=== PATIENT | female | born 1940 | race Caucasian/White ===

== ENCOUNTER 2018-09-17 15:40 | Emergency (ER) | payer MEDICARE ==
[2018-09-17 17:13] LABS: Urine Appearance Clear; Urine Bacteria 1+ (Absent); Urine Bilirubin Negative (Negative); Urine Blood 3+ (Negative); Urine Color Red; Urine Glucose Negative (Negative); Urine Ketones Negative (Negative); Urine Nitrite Negative (Negative); Urine Protein 2+(100 mg/dL) (Negative); Urine Red Blood Cell Trace(0-2/hpf) (Absent); Urine Specific Gravity 1.003 (1.010-1.030); Urine Urobilinogen Negative (Negative); Urine White Blood Cell Trace(0-5/hpf) (Absent)
[2018-09-17] MEDS ORDERED: cefTRIAXone(*) 1 GM in NS 0.9% 50 ML* 50 ML IVPB ONE (17:44)
[2018-09-17 18:19] LABS: ABS Basophils 0 10^3/ul (0-0.2); ABS Eosinophils 0.1 10^3/ul (0-0.6); ABS Lymphocytes 1.2 10^3/ul (1.0-4.8); ABS Monocytes 0.6 10^3/ul (0-0.8); ABS Neutrophils 4.7 10^3/ul (1.5-7.7); ABS Nucleated RBC 0 10^3/ul; Hematocrit 26 % (35-47); Hemoglobin 8.7 g/dl (12.0-16.0); Lymphocyte % 18.5 %; Mean Corpuscular HGB Conc 34 g/dl (31-36); Mean Corpuscular Hemoglobin 32 pg (27-31); Mean Corpuscular Volume 95 fL (80-97); Mean Platelet Volume 8.3 fL (7.4-10.4); Nucleated Red Blood Cells % 0.1; Platelet Count 217 10^3/ul (150-450); Red Blood Count 2.74 10^6/ul (4.00-5.40); Red Cell Distribution Width 17 % (10.5-15); White Blood Count 6.6 10^3/ul (3.5-10.8)
[2018-09-17 18:35] LABS: ALT 22 U/L (7-52); Albumin 4.3 g/dL (3.2-5.2); Alkaline Phosphatase 36 U/L (34-104); BUN/Creatinine Ratio 10.4 (8-20); Blood Urea Nitrogen 8 mg/dL (6-24); C Reactive Protein 2.04 mg/L (<8.01); CO2 Carbon Dioxide 24 mmol/L (22-32); Calcium 9.5 mg/dL (8.6-10.3); Chloride 105 mmol/L (101-111); EGFR Non-African American 72.9 (>60); Globulin 2.1 g/dL (2-4); Glucose 103 mg/dL (70-100); Sodium 134 mmol/L (135-145); Total Protein 6.4 g/dL (6.4-8.9)
[2018-09-17 18:45] LABS: Anion Gap 5 mmol/L (2-11)
--- NOTE | 2018-09-17 19:12 | ED ---
GI/ HPI - HPI Summary HPI Summary: 78-year-old presents with dysuria and hematuria today. States she felt feverish and chills. States he has history hematuria by Dr. Anderson cannot figure out why she gets it. She says she feels like she is UTI. She admits to lower abdominal pain after she can. She also had flank pain but this has since resolved. She has a history of anemia and gets blood transfusions. She is not on blood thinners. She doesn't take a daily aspirin. She denies any history kidney stones. She has a chest pain or shortness of breath. She states she has no pain at home until she urinates. Has history of cholecystectomy, appendectomy and hernia repair. - History of Current Complaint Chief Complaint: EDUrogenitalProblems Time Seen by Provider: 09/17/18 17:36 Stated Complaint: BLOOD IN URINE/CRAMPS/FEVER Pain Intensity: 4 - Additional Pertinent History Primary Care Physician: ZORAIDA - Allergy/Home Medications Allergies/Adverse Reactions: Allergies Allergy/AdvReac Type Severity Reaction Status Date / Time No Known Allergies Allergy Verified 09/17/18 16:50 PMH/Surg Hx/FS Hx/Imm Hx Endocrine/Hematology History: Reports: Hx Anemia Denies: Hx Anticoagulant Therapy, Hx Diabetes Cardiovascular History: Reports: Hx Valvular Heart Disease Denies: Hx Congestive Heart Failure, Hx Hypertension, Hx Pacemaker/ICD Respiratory History: Denies: Hx Asthma, Hx Chronic Obstructive Pulmonary Disease (COPD) GI History: Reports: Hx Gastroesophageal Reflux Disease, Hx Irritable Bowel History: Reports: Other Problems/Disorders - Hx of Prolapsed bladder w/ surgical repair February 2015 Musculoskeletal History: Reports: Hx Arthritis, Hx Back Problems Sensory History: Reports: Hx Contacts or Glasses, Hx Hearing Aid Opthamlomology History: Reports: Hx Contacts or Glasses Psychiatric History: Reports: Hx Anxiety - uses prn meds Denies: Hx Panic Disorder, Hx of Violent Episodes Against Others - Cancer History Cancer Type, 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 [place] Hx Chemotherapy: No Hx Radiation Therapy: No - Surgical History Surgery Procedure, Year, and Place: appendectomy, hysterectomy ,c sections, hemerroidectomy, AORTIC AND MITRAL VALVE REPAIR, CABG Hx Anesthesia Reactions: No Infectious Disease History: No Infectious Disease History: Denies: Traveled Outside the [place] in Last 30 Days - Family History Known Family History: Positive: Non-Contributory - Social History Alcohol Use: None Substance Use Type: Reports: None Smoking Status (MU): Former Smoker Type: Cigarettes Amount Used/How Often: smoked 1ppd Length of Time of Smoking/Using Tobacco: 25 years Have You Smoked in the Last Year: No Review of Systems Positive: Fever, Chills Negative: Chest Pain Negative: Shortness Of Breath Negative: Abdominal Pain, Nausea Positive: dysuria, flank pain - resolved, hematuria All Other Systems Reviewed And Are Negative: Yes Physical Exam Triage Information Reviewed: Yes Vital Signs On Initial Exam: Initial Vitals Temp Pulse Resp BP Pulse Ox 98.6 F 72 16 160/87 100 09/17/18 15:54 09/17/18 15:54 09/17/18 15:54 09/17/18 15:54 09/17/18 15:54 Vital Signs Reviewed: Yes Appearance: Positive: Well-Appearing Skin: Positive: Warm, Dry Head/Face: Positive: Normal Head/Face Inspection Eyes: Positive: Normal, Conjunctiva Clear ENT: Positive: Pharynx normal Respiratory/Lung Sounds: Positive: Clear to Auscultation, Breath Sounds Present Cardiovascular: Positive: Normal, RRR Abdomen Description: Positive: Nontender, Soft. Negative: CVA Tenderness (R), CVA Tenderness (L) Bowel Sounds: Positive: Present Musculoskeletal: Positive: Normal Neurological: Positive: Normal Psychiatric: Positive: Normal Diagnostics - Vital Signs Vital Signs Temp Pulse Resp BP Pulse Ox 09/17/18 15:54 98.6 F 72 16 160/87 100 - Laboratory Lab Results: Lab Results 09/17/18 09/17/18 09/17/18 Range/Units 16:06 18:08 18:08 WBC 6.6 (3.5-10.8) 10^3/ul RBC 2.74 L (4.00-5.40) 10^6/ul Hgb 8.7 L (12.0-16.0) g/dl Hct 26 L (35-47) % MCV 95 (80-97) fL MCH 32 H (27-31) pg MCHC 34 (31-36) g/dl RDW 17 H (10.5-15) % Plt Count 217 (150-450) 10^3/ul MPV 8.3 (7.4-10.4) fL Neut % (Auto) 70.7 % Lymph % (Auto) 18.5 % Mccone % (Auto) 9.2 % Eos % (Auto) 1.0 % Baso % (Auto) 0.6 % Absolute Neuts (auto) 4.7 (1.5-7.7) 10^3/ul Absolute Lymphs (auto) 1.2 (1.0-4.8) 10^3/ul Absolute Monos (auto) 0.6 (0-0.8) 10^3/ul Absolute Eos (auto) 0.1 (0-0.6) 10^3/ul Absolute Basos (auto) 0 (0-0.2) 10^3/ul Absolute Nucleated RBC 0 10^3/ul Nucleated RBC % 0.1 Sodium 134 L (135-145) mmol/L Potassium TNP Chloride 105 (101-111) mmol/L Carbon Dioxide 24 (22-32) mmol/L Anion Gap 5 (2-11) mmol/L BUN 8 (6-24) mg/dL Creatinine 0.77 (0.51-0.95) mg/dL Est GFR ( Amer) 88.2 (>60) Est GFR (Non-Af Amer) 72.9 (>60) BUN/Creatinine Ratio 10.4 (8-20) Glucose 103 H (70-100) mg/dL Lactic Acid (0.5-2.0) mmol/L Calcium 9.5 (8.6-10.3) mg/dL Total Bilirubin 2.10 H (0.2-1.0) mg/dL AST TNP ALT 22 (7-52) U/L Alkaline Phosphatase 36 (34-104) U/L C-Reactive Protein 2.04 (<8.01) mg/L Total Protein 6.4 (6.4-8.9) g/dL Albumin 4.3 (3.2-5.2) g/dL Globulin 2.1 (2-4) g/dL Albumin/Globulin Ratio 2.0 (1-3) Urine Color Red A Urine Appearance Clear Urine pH 7.0 (5-9) Ur Specific [place] 1.003 L (1.010-1.030) Urine Protein 2+(100 mg/dl) A (Negative) Urine Ketones Negative (Negative) Urine Blood 3+ A (Negative) Urine Nitrate Negative (Negative) Urine Bilirubin Negative (Negative) Urine Urobilinogen Negative (Negative) Ur Leukocyte Esterase Negative (Negative) Urine WBC (Auto) Trace(0-5/hpf) (Absent) Urine RBC (Auto) Trace(0-2/hpf) (Absent) Urine Bacteria 1+ A (Absent) Urine Glucose Negative (Negative) 09/17/18 Range/Units 18:08 WBC (3.5-10.8) 10^3/ul RBC (4.00-5.40) 10^6/ul Hgb (12.0-16.0) g/dl Hct (35-47) % MCV (80-97) fL MCH (27-31) pg MCHC (31-36) g/dl RDW (10.5-15) % Plt Count (150-450) 10^3/ul MPV (7.4-10.4) fL Neut % (Auto) % Lymph % (Auto) % Mccone % (Auto) % Eos % (Auto) % Baso % (Auto) % Absolute Neuts (auto) (1.5-7.7) 10^3/ul Absolute Lymphs (auto) (1.0-4.8) 10^3/ul Absolute Monos (auto) (0-0.8) 10^3/ul Absolute Eos (auto) (0-0.6) 10^3/ul Absolute Basos (auto) (0-0.2) 10^3/ul Absolute Nucleated RBC 10^3/ul Nucleated RBC % Sodium (135-145) mmol/L Potassium Chloride (101-111) mmol/L Carbon Dioxide (22-32) mmol/L Anion Gap (2-11) mmol/L BUN (6-24) mg/dL Creatinine (0.51-0.95) mg/dL Est GFR ( Amer) (>60) Est GFR (Non-Af Amer) (>60) BUN/Creatinine Ratio (8-20) Glucose (70-100) mg/dL Lactic Acid 0.7 (0.5-2.0) mmol/L Calcium (8.6-10.3) mg/dL Total Bilirubin (0.2-1.0) mg/dL AST ALT (7-52) U/L Alkaline Phosphatase (34-104) U/L C-Reactive Protein (<8.01) mg/L Total Protein (6.4-8.9) g/dL Albumin (3.2-5.2) g/dL Globulin (2-4) g/dL Albumin/Globulin Ratio (1-3) Urine Color Urine Appearance Urine pH (5-9) Ur Specific [place] (1.010-1.030) Urine Protein (Negative) Urine Ketones (Negative) Urine Blood (Negative) Urine Nitrate (Negative) Urine Bilirubin (Negative) Urine Urobilinogen (Negative) Ur Leukocyte Esterase (Negative) Urine WBC (Auto) (Absent) Urine RBC (Auto) (Absent) Urine Bacteria (Absent) Urine Glucose (Negative) Result Diagrams: 09/17/18 18:08 09/17/18 18:08 Lab Statement: Any lab studies that have been ordered have been reviewed, and results considered in the medical decision making process. - CT abd CT Interpretation Completed By: Radiologist Summary of CT Findings: IMPRESSION: 1. No acute findings. No renal or ureteral calculi. No hydronephrosis. 2. Diverticulosis coli. No diverticulitis. 3. Status post cholecystectomy and hysterectomy. 4. Other non-emergent findings as above. GIGU Course/Dx - Course Course Of Treatment: 78-year-old presents with dysuria and hematuria today. States she felt feverish and chills. States he has history hematuria by Dr. Anderson cannot figure out why she gets it. She says she feels like she is UTI. She admits to lower abdominal pain after she can. She also had flank pain but this has since resolved. She has a history of anemia and gets blood transfusions. She is not on blood thinners. She doesn't take a daily aspirin. She denies any history kidney stones. She has a chest pain or shortness of breath. She states she has no pain at home until she urinates. Has history of cholecystectomy, appendectomy and hernia repair. On exam nontender flanks. Nontender abdomen. wbc normal. hemoglobin is 8.7 which has when it has been around. urine shows blood and +[address] shows no hydronephrosis or obstruction. gave dose of rocephin. will treat with uti with cipro. will have follow up with urology about hematuria. patient understand and agrees with rhodes. - Diagnoses Differential Diagnoses - Female: Pyelonephritis, Urinary Tract Infection, Ureteral Calculi Provider Diagnoses: UTI (urinary tract infection), Hematuria Discharge - Sign-Out/Discharge Documenting (check all that apply): Patient Departure - Discharge Plan Condition: Good Disposition: HOME Prescriptions: Ciprofloxacin TAB* [Cipro 500 MG TAB*] 500 mg PO BID #14 tab Patient Education Materials: Urinary Tract Infection in Women (ED) Referrals: Brenton Carbajal NP [Primary Care Provider] - Champ Anderson MD [Medical Doctor] - Additional Instructions: follow up with urology Take cipro twice a day for 7 days Drink plenty of fluids Return to ED if develop persistent fevers or any new or worsening symptoms - Billing Disposition and Condition Condition: GOOD Disposition: Home
[2018-09-17 19:34] VITALS: BP 148/80
== END 2018-09-17 19:33 | disposition home or self-care (01) ==
LOC: ED 15:40
DX: N39.0 Urinary tract infection, site not specified (principal); R31.9 Hematuria, unspecified; K57.30 Diverticulosis of large intestine without perforation or abscess without bleeding; F41.9 Anxiety disorder, unspecified; Z95.2 Presence of prosthetic heart valve; Z95.1 Presence of aortocoronary bypass graft; Z90.49 Acquired absence of other specified parts of digestive tract; Z90.710 Acquired absence of both cervix and uterus; Z90.89 Acquired absence of other organs; Z87.891 Personal history of nicotine dependence
CPT/HCPCS: 36415; 74176; 80053; 81003; 81015; 83605; 85025; 86140; 87086; 96365; 99282; J0696

== ENCOUNTER 2021-04-29 15:46 | Inpatient (IN) ==
[2021-04-29] MEDS ORDERED: NS 0.9% 1000 ml BAG 1,000 ML IV ONE (15:49)
[2021-04-29] MEDS ORDERED: Alteplase (100 mg Vial) 100 mg VIAL ONE (16:01)
[2021-04-29] MEDS ORDERED: Iodixanol (CONTRAST) 320 MG/ML 100 ML SDV IV ONE (16:33)
[2021-04-29] MEDS ORDERED: ALTEPLASE IV ONE ×3 (16:37→16:40)
[2021-04-29] MEDS ORDERED: Alteplase (100 mg Vial) 100 MG in Premix IV 100 ML IV ONE (16:37)
[2021-04-29 16:51] LABS: Hematocrit 27 % (35-47); Hemoglobin 8.7 g/dL (12.0-16.0); Mean Corpuscular HGB Conc 32 g/dL (31-36); Mean Corpuscular Hemoglobin 29 pg (27-31); Mean Corpuscular Volume 91 fL (80-97); Mean Platelet Volume 8.3 fL (7.4-10.4); Platelet Count 200 10^3/uL (150-450); Red Blood Count 3.01 10^6 /uL (3.70-4.87); Red Cell Distribution Width 17 % (10-15); White Blood Count 7.6 10^3/uL (3.5-10.8)
[2021-04-29 17:00] LABS: Activated Partial Thrombo Time 31.3 seconds (26.0-38.0); INR 1.19 (0.86-1.15)
[2021-04-29 17:03] LABS: Alcohol, S < 13 mg/dL (<10)
[2021-04-29 17:04] LABS: Troponin I 0.01 ng/mL (<0.03)
[2021-04-29 17:05] LABS: ALT 24 U/L (7-52); AST 84 U/L (13-39); Albumin/Globulin Ratio 1.7 (1-3); Alkaline Phosphatase 48 U/L (35-149); Anion Gap 6 mmol/L (2-11); Blood Urea Nitrogen 11 mg/dL (6-24); CO2 Carbon Dioxide 24 mmol/L (22-32); Calcium 8.7 mg/dL (8.6-10.3); Chloride 104 mmol/L (101-111); Cholesterol 142 mg/dL; EGFR African American 58.6 (>60); EGFR Non-African American 48.4 (>60); Globulin 2.4 g/dL (2-4); Glucose 96 mg/dL (70-100); HDL Cholesterol 48.8 mg/dL; LDL Cholesterol 77 mg/dL; Potassium 4.3 mmol/L (3.5-5.0); Sodium 134 mmol/L (135-145); Total Protein 6.4 g/dL (6.4-8.9); Triglycerides 80 mg/dL
[2021-04-29] MEDS ORDERED: Morphine 2 MG/ML SYRINGE IV ONE (17:16)
[2021-04-29 17:19] LABS: ABS Lymphocytes 0.6 10^3/ul (1.0-4.8); ABS Monocytes 0.8 10^3/ul (0-0.8); ABS Neutrophils 6.2 10^3/ul (1.5-7.7); Eosinophil % 0.4 %; Lymphocyte % 7.4 %
[2021-04-29] MEDS ORDERED: Morphine 2 MG/ML SYRINGE IV PRN ×2 (18:25→18:47)
[2021-04-29 18:38] LABS: Magnesium 1.7 mg/dL (1.9-2.7)
[2021-04-29 18:52] LABS: TSH Ultra Thyroid Stim Horm 4.87 mcIU/mL (0.34-5.60)
[2021-04-29] MEDS: Morphine 2 MG/ML SYRINGE IV PRN ×2 (19:27→23:16)
[2021-04-29] MEDS: Acetaminophen IV 1 GM/100ML 100 ML IV PRN (20:12)
[2021-04-30] MEDS ORDERED: Morphine 2 MG/ML SYRINGE IV ONE (02:29)
[2021-04-30] MEDS ORDERED: Morphine 2 MG/ML SYRINGE ONE (02:33)
[2021-04-30] MEDS: Acetaminophen IV 1 GM/100ML 100 ML IV PRN ×3 (04:06→20:12)
[2021-04-30 04:30] LABS: Hematocrit 24 % (35-47); Hemoglobin 7.7 g/dL (12.0-16.0); Mean Corpuscular HGB Conc 33 g/dL (31-36); Mean Corpuscular Hemoglobin 30 pg (27-31); Mean Corpuscular Volume 92 fL (80-97); Mean Platelet Volume 8.6 fL (7.4-10.4); Platelet Count 194 10^3/uL (150-450); Red Blood Count 2.58 10^6 /uL (3.70-4.87); Red Cell Distribution Width 17 % (10-15); White Blood Count 3.9 10^3/uL (3.5-10.8)
[2021-04-30 04:48] LABS: ALT 23 U/L (7-52); AST 81 U/L (13-39); Albumin 3.7 g/dL (3.2-5.2); Albumin/Globulin Ratio 1.6 (1-3); Alkaline Phosphatase 46 U/L (35-149); Anion Gap 5 mmol/L (2-11); Blood Urea Nitrogen 9 mg/dL (6-24); CO2 Carbon Dioxide 25 mmol/L (22-32); Calcium 8.6 mg/dL (8.6-10.3); Chloride 109 mmol/L (101-111); EGFR African American 81.4 (>60); EGFR Non-African American 67.2 (>60); Globulin 2.3 g/dL (2-4); Glucose 106 mg/dL (70-100); Potassium 3.7 mmol/L (3.5-5.0); Sodium 139 mmol/L (135-145)
[2021-04-30 05:09] LABS: TSH Ultra Thyroid Stim Horm 10.05 mcIU/mL (0.34-5.60)
[2021-04-30] MEDS: Morphine 2 MG/ML SYRINGE IV PRN ×2 (08:07→17:14)
[2021-04-30 08:48] LABS: Magnesium 1.7 mg/dL (1.9-2.7); Phosphorus 3.3 mg/dL (2.5-5.0)
[2021-04-30 10:23] LABS: Free T4 0.86 ng/dL (0.61-1.12)
[2021-04-30 10:31] LABS: Vitamin B12 250 pg/mL (180-914)
[2021-04-30 14:33] LABS: Ferritin 27.2 ng/mL (11-307)
[2021-04-30 14:46] LABS: % Iron Saturation 10 % (15-55); Iron 31 ug/dL (50-212); Total Iron Binding Capacity 308 mcg/dL (250-450); Transferrin 220 mg/dL (203-362); Unsaturated Iron Binding < 293 ug/dL
[2021-04-30] MEDS ORDERED: Magnesium Sulfate IV 3 GM in NS 0.9% 100 ml BAG 100 ML IVPB ONE (17:00)
[2021-05-01] MEDS ORDERED: NS 0.9% 500 ml BAG 500 ML IV ONE (00:07)
[2021-05-01] MEDS: Morphine 2 MG/ML SYRINGE IV PRN (00:49)
[2021-05-01 06:10] LABS: Hematocrit 24 % (35-47); Hemoglobin 7.8 g/dL (12.0-16.0); Mean Corpuscular HGB Conc 32 g/dL (31-36); Mean Corpuscular Hemoglobin 29 pg (27-31); Mean Corpuscular Volume 92 fL (80-97); Mean Platelet Volume 8.8 fL (7.4-10.4); Platelet Count 191 10^3/uL (150-450); Red Blood Count 2.65 10^6 /uL (3.70-4.87); Red Cell Distribution Width 18 % (10-15); White Blood Count 4.2 10^3/uL (3.5-10.8)
[2021-05-01 06:27] LABS: Calcium 8.8 mg/dL (8.6-10.3); EGFR African American 84.9 (>60); EGFR Non-African American 70.2 (>60); Magnesium 2.2 mg/dL (1.9-2.7); Phosphorus 3.2 mg/dL (2.5-5.0); Potassium 3.8 mmol/L (3.5-5.0)
[2021-05-01] MEDS ORDERED: KCL 20 MEQ/100 ML IVPREMIX 20 MEQ/100 ML BAG IV ONE (08:45)
[2021-05-01] MEDS: Aspirin EC 81 mg TAB.EC (enteric coated) PO SCH (09:11)
[2021-05-01] MEDS ORDERED: Metoprolol Tartrate 5 mg VIAL 5 ml VIAL (1 mg/ml) IV PRN ×2 (09:14→14:24)
[2021-05-01] MEDS ORDERED: Potassium Chlor 20 meq TAB.ER PO ONE (09:18)
[2021-05-02] MEDS: Aspirin EC 81 mg TAB.EC (enteric coated) PO SCH (08:24)
[2021-05-03 07:18] LABS: Hematocrit 25 % (35-47); Hemoglobin 8.2 g/dL (12.0-16.0); Mean Corpuscular HGB Conc 33 g/dL (31-36); Mean Corpuscular Hemoglobin 30 pg (27-31); Mean Corpuscular Volume 90 fL (80-97); Mean Platelet Volume 8.2 fL (7.4-10.4); Platelet Count 218 10^3/uL (150-450); Red Blood Count 2.74 10^6 /uL (3.70-4.87); Red Cell Distribution Width 18 % (10-15); White Blood Count 4.6 10^3/uL (3.5-10.8)
[2021-05-03 08:19] LABS: ABS Eosinophils 0.1 10^3/ul (0-0.6); ABS Lymphocytes 0.7 10^3/ul (1.0-4.8); ABS Monocytes 0.6 10^3/ul (0-0.8); ABS Neutrophils 3.1 10^3/ul (1.5-7.7); Eosinophil % 1.7 %
[2021-05-03] MEDS: Aspirin EC 81 mg TAB.EC (enteric coated) PO SCH (09:35)
[2021-05-04] MEDS: Aspirin EC 81 mg TAB.EC (enteric coated) PO SCH (08:23)
[2021-05-05] MEDS: Aspirin EC 81 mg TAB.EC (enteric coated) PO SCH (08:33)
[2021-05-06] MEDS: Aspirin EC 81 mg TAB.EC (enteric coated) PO SCH (08:34)
[2021-05-07 05:43] LABS: Hematocrit 27 % (35-47); Hemoglobin 8.8 g/dL (12.0-16.0); Mean Corpuscular HGB Conc 33 g/dL (31-36); Mean Corpuscular Hemoglobin 29 pg (27-31); Mean Corpuscular Volume 90 fL (80-97); Mean Platelet Volume 8.8 fL (7.4-10.4); Platelet Count 258 10^3/uL (150-450); Red Blood Count 2.98 10^6 /uL (3.70-4.87); Red Cell Distribution Width 20 % (10-15); White Blood Count 4.4 10^3/uL (3.5-10.8)
[2021-05-07 05:56] LABS: ABS Eosinophils 0.1 10^3/ul (0-0.6); ABS Lymphocytes 0.6 10^3/ul (1.0-4.8); ABS Monocytes 0.6 10^3/ul (0-0.8); ABS Neutrophils 3.1 10^3/ul (1.5-7.7); Eosinophil % 2.3 %; Lymphocyte % 13.1 %; Nucleated Red Blood Cells % 0.2
[2021-05-07 06:45] LABS: Acanthocytes 1+; Anisocytosis 2+
[2021-05-07] MEDS: Aspirin EC 81 mg TAB.EC (enteric coated) PO SCH (08:52)
[2021-05-08] MEDS: Aspirin EC 81 mg TAB.EC (enteric coated) PO SCH (09:35)
[2021-05-09] MEDS: Aspirin EC 81 mg TAB.EC (enteric coated) PO SCH (08:33)
[2021-05-09] MEDS ORDERED: Polyethylene Glycol 3350 17 GM PACKET PO PRN (11:55)
[2021-05-10] MEDS: Aspirin EC 81 mg TAB.EC (enteric coated) PO SCH (08:50)
[2021-05-11] MEDS: Aspirin EC 81 mg TAB.EC (enteric coated) PO SCH (09:00)
[2021-05-12] MEDS: Aspirin EC 81 mg TAB.EC (enteric coated) PO SCH (08:29)
[2021-05-13] MEDS: Aspirin EC 81 mg TAB.EC (enteric coated) PO SCH (08:44)
[2021-05-13 12:04] VITALS: BP 108/62
== END 2021-05-13 11:50 | disposition swing bed (61) | DRG 62 ==
LOC: ED 15:46 → ICU 18:24 → SUATTDRO 18:24 → MEDTELE 05-01 11:17
PROVIDERS: ADMIT Surgery Surgical Critical Care; ATTEND Internal Medicine

== ENCOUNTER 2021-06-26 13:59 | Inpatient (IN) ==
[2021-06-26] MEDS ORDERED: Lactated Ringers 1000 ml BAG 1,000 ML IV ONE (14:44)
[2021-06-26 15:12] LABS: INR 2.15 (0.86-1.15)
[2021-06-26 15:19] LABS: ABS Eosinophils 0.1 10^3/ul (0-0.6); ABS Lymphocytes 0.8 10^3/ul (1.0-4.8); ABS Monocytes 0.5 10^3/ul (0-0.8); ABS Neutrophils 2.7 10^3/ul (1.5-7.7); Eosinophil % 1.7 %; Hematocrit 18 % (35-47); Hemoglobin 5.4 g/dL (12.0-16.0); Lymphocyte % 18.2 %; Mean Corpuscular HGB Conc 30 g/dL (31-36); Mean Corpuscular Hemoglobin 25 pg (27-31); Mean Corpuscular Volume 81 fL (80-97); Mean Platelet Volume 8.1 fL (7.4-10.4); Nucleated Red Blood Cells % 0.3; Platelet Count 250 10^3/uL (150-450); Red Blood Count 2.19 10^6 /uL (3.70-4.87); Red Cell Distribution Width 21 % (10-15); White Blood Count 4.1 10^3/uL (3.5-10.8)
[2021-06-26 15:29] LABS: Troponin I 0.01 ng/mL (<0.03)
[2021-06-26 15:44] LABS: Albumin 3.9 g/dL (3.2-5.2); Albumin/Globulin Ratio 1.5 (1-3); Calcium 9.1 mg/dL (8.6-10.3); Globulin 2.6 g/dL (2-4); Potassium 3.2 mmol/L (3.5-5.0); Total Bilirubin 1.8 mg/dL (0.2-1.0); Total Protein 6.5 g/dL (6.4-8.9)
[2021-06-26 15:45] LABS: Microcytosis 1+
[2021-06-26 15:46] LABS: Acanthocytes 1+; Anisocytosis 2+; Hypochromasia 2+; Polychromasia 1+
[2021-06-26] MEDS ORDERED: Iodixanol (CONTRAST) 320 MG/ML 100 ML SDV IV ONE (15:59)
[2021-06-26 16:16] LABS: Influenza A Molecular Negative (Negative); Influenza B Molecular Negative (Negative)
[2021-06-26] MEDS ORDERED: HYDROcodone/ACETAMIN 5/325 mg TAB PO PRN (17:15)
[2021-06-26] MEDS ORDERED: Potassium Chloride LIQUID 20 MEQ/15 ML LIQUID PO ONE (18:02)
[2021-06-26 18:31] LABS: Rapid COVID-19 Molecular Undetected (Undetected)
[2021-06-27 06:20] LABS: Albumin 3.4 g/dL (3.2-5.2); Albumin/Globulin Ratio 1.5 (1-3); Calcium 8.9 mg/dL (8.6-10.3); Globulin 2.3 g/dL (2-4); Potassium 3.1 mmol/L (3.5-5.0); Total Bilirubin 2.8 mg/dL (0.2-1.0); Total Protein 5.7 g/dL (6.4-8.9)
[2021-06-27 06:50] LABS: Hematocrit 23 % (35-47); Hemoglobin 7.2 g/dL (12.0-16.0); Mean Corpuscular HGB Conc 32 g/dL (31-36); Mean Corpuscular Hemoglobin 26 pg (27-31); Mean Corpuscular Volume 81 fL (80-97); Mean Platelet Volume 8.3 fL (7.4-10.4); Platelet Count 205 10^3/uL (150-450); Red Blood Count 2.77 10^6 /uL (3.70-4.87); Red Cell Distribution Width 18 % (10-15); White Blood Count 3.7 10^3/uL (3.5-10.8)
[2021-06-27 06:58] LABS: INR 1.58 (0.86-1.15)
[2021-06-27 07:29] LABS: ABS Eosinophils 0.1 10^3/ul (0-0.6); ABS Lymphocytes 0.5 10^3/ul (1.0-4.8); ABS Monocytes 0.5 10^3/ul (0-0.8); ABS Neutrophils 2.5 10^3/ul (1.5-7.7); Eosinophil % 2.1 %; Lymphocyte % 13.6 %; Nucleated Red Blood Cells % 0.2
[2021-06-27] MEDS: NS 0.9% 1000 ml BAG 1,000 ML IV SCH (10:40)
[2021-06-27] MEDS ORDERED: fentaNYL 100 mcg/2 ml 50 MCG/ML VIAL ONE (15:25)
[2021-06-27] MEDS ORDERED: Midazolam 10 mg/10 ml VIAL 1 mg/ml 10 ml VIAL (10 mg) ONE (15:25)
[2021-06-27 21:44] LABS: Hematocrit 22 % (35-47); Hemoglobin 6.8 g/dL (12.0-16.0)
[2021-06-28] MEDS: NS 0.9% 1000 ml BAG 1,000 ML IV SCH (02:50)
[2021-06-28] MEDS ORDERED: Lorazepam PYXIS KEY PRN ×3 (04:15→16:42)
[2021-06-28] MEDS ORDERED: LORazepam 2 mg VIAL 1 ml IV PUSH ONE ×2 (04:15→14:47)
[2021-06-28] MEDS ORDERED: Haloperidol 5 mg/ml SDV IV/IM 5 MG/ML AMP IM ONE (07:20)
[2021-06-28] MEDS ORDERED: Haloperidol 5 mg/ml SDV IV/IM 5 MG/ML AMP ONE (07:21)
[2021-06-28 08:57] LABS: Hematocrit 25 % (35-47); Mean Corpuscular HGB Conc 32 g/dL (31-36); Mean Corpuscular Hemoglobin 26 pg (27-31); Mean Corpuscular Volume 80 fL (80-97); Mean Platelet Volume 8.5 fL (7.4-10.4); Platelet Count 213 10^3/uL (150-450); Red Blood Count 3.08 10^6 /uL (3.70-4.87); Red Cell Distribution Width 18 % (10-15); White Blood Count 3.5 10^3/uL (3.5-10.8)
[2021-06-28 09:13] LABS: Albumin 3.4 g/dL (3.2-5.2); Albumin/Globulin Ratio 1.5 (1-3); Globulin 2.2 g/dL (2-4); INR 2.03 (0.86-1.15); Magnesium 1.8 mg/dL (1.9-2.7); Potassium 2.8 mmol/L (3.5-5.0); Total Bilirubin 3.3 mg/dL (0.2-1.0); Total Protein 5.6 g/dL (6.4-8.9)
[2021-06-28] MEDS ORDERED: Magnesium Sulfate IV 3 GM in NS 0.9% 100 ml BAG 100 ML IVPB ONE (10:00)
[2021-06-28] MEDS: KCL 20 MEQ/100 ML IVPREMIX 20 MEQ/100 ML BAG IV SCH ×3 (10:30→21:48)
[2021-06-28] MEDS ORDERED: KCL 20 MEQ/100 ML IVPREMIX 20 MEQ/100 ML BAG IV SCH (16:00)
[2021-06-28] MEDS ORDERED: LORazepam 2 mg VIAL 1 ml IM ONE (16:42)
[2021-06-28] MEDS ORDERED: LORazepam 2 mg VIAL 1 ml ONE (16:52)
[2021-06-28] MEDS ORDERED: POTASSIUM CHLORIDE IVPB SCH (17:00)
[2021-06-28] MEDS ORDERED: NS 0.9% IVPB SCH (17:00)
[2021-06-28] MEDS: Potassium Chloride LIQUID 20 MEQ/15 ML LIQUID PO SCH (21:49)
[2021-06-28 23:17] LABS: Hematocrit 24 % (35-47); Hemoglobin 7.7 g/dL (12.0-16.0); Mean Corpuscular HGB Conc 32 g/dL (31-36); Mean Corpuscular Hemoglobin 26 pg (27-31); Mean Corpuscular Volume 82 fL (80-97); Mean Platelet Volume 8.1 fL (7.4-10.4); Platelet Count 204 10^3/uL (150-450); Red Blood Count 2.95 10^6 /uL (3.70-4.87); Red Cell Distribution Width 19 % (10-15); White Blood Count 4.6 10^3/uL (3.5-10.8)
[2021-06-28 23:33] LABS: Calcium 8.9 mg/dL (8.6-10.3); Magnesium 2.1 mg/dL (1.9-2.7); Potassium 3.4 mmol/L (3.5-5.0)
[2021-06-29] MEDS ORDERED: LORazepam 2 mg VIAL 1 ml IM ONE (04:27)
[2021-06-29] MEDS ORDERED: Lorazepam PYXIS KEY PRN ×2 (04:27→06:08)
[2021-06-29] MEDS ORDERED: LORazepam 2 mg VIAL 1 ml IV PUSH ONE (06:08)
[2021-06-29] MEDS ORDERED: LORazepam 2 mg VIAL 1 ml ONE (06:12)
[2021-06-29] MEDS ORDERED: Potassium Chloride LIQUID 20 MEQ/15 ML LIQUID PO ONE (06:26)
[2021-06-29 06:41] LABS: Calcium 9.2 mg/dL (8.6-10.3); Magnesium 2.1 mg/dL (1.9-2.7); Potassium 3.6 mmol/L (3.5-5.0)
[2021-06-29] MEDS: Potassium Chloride LIQUID 20 MEQ/15 ML LIQUID PO SCH (07:07)
[2021-06-29 12:11] LABS: Hematocrit 28 % (35-47); Hemoglobin 8.8 g/dL (12.0-16.0); Mean Corpuscular HGB Conc 32 g/dL (31-36); Mean Corpuscular Hemoglobin 25 pg (27-31); Mean Corpuscular Volume 80 fL (80-97); Platelet Count 245 10^3/uL (150-450); Red Blood Count 3.49 10^6 /uL (3.70-4.87); Red Cell Distribution Width 18 % (10-15); White Blood Count 4.1 10^3/uL (3.5-10.8)
[2021-06-29 13:58] LABS: Acanthocytes 2+; Anisocytosis 1+; Hypochromasia 2+; Macrocytosis 1+; Microcytosis 2+; Polychromasia 2+
[2021-06-29 13:59] LABS: Burr Cells 2+; Schistocytes 1+; Spherocytes 1+
[2021-06-30 06:11] LABS: Hematocrit 28 % (35-47); Hemoglobin 8.7 g/dL (12.0-16.0); Mean Corpuscular HGB Conc 32 g/dL (31-36); Mean Corpuscular Hemoglobin 26 pg (27-31); Mean Corpuscular Volume 80 fL (80-97); Mean Platelet Volume 8.4 fL (7.4-10.4); Platelet Count 228 10^3/uL (150-450); Red Blood Count 3.43 10^6 /uL (3.70-4.87); Red Cell Distribution Width 19 % (10-15); White Blood Count 3.3 10^3/uL (3.5-10.8)
[2021-07-01 06:37] LABS: % Iron Saturation 7 % (15-55); Iron 24 ug/dL (50-212); Total Iron Binding Capacity 329 mcg/dL (250-450); Transferrin 235 mg/dL (203-362); Unsaturated Iron Binding < 314 ug/dL
[2021-07-01 06:46] LABS: Ferritin 23.5 ng/mL (11-307)
[2021-07-01 12:25] VITALS: BP 102/59
== END 2021-07-01 17:15 | disposition home or self-care (01) | DRG 812 ==
LOC: ED 13:59 → MED 19:28 → SUATTDRO 20:52 → MED 06-29 08:11
PROVIDERS: ADMIT Internal Medicine; ATTEND Hospitalist

== ENCOUNTER 2023-03-30 17:08 | Inpatient (IN) ==
[2023-03-30 17:50] LABS: Hematocrit 20.8 % (35-45); Hemoglobin 6.6 g/dL (11.5-14.3); Mean Corpuscular Hemoglobin 31.8 pg (27-33); Mean Corpuscular Hgb Conc 31.5 g/dL (31-36); Mean Platelet Volume 8.1 fL (7.5-11.2); Platelet Count 168 10^3/uL (150-450); Red Blood Count 2.06 10^6/uL (3.63-4.92); White Blood Count 4.5 10^3/uL (3.8-11.8)
[2023-03-30 18:06] LABS: INR 2.17 (0.88-1.18)
[2023-03-30 18:30] LABS: ALT 11 U/L (7-52); Albumin 3.6 g/dL (3.2-5.2); Albumin/Globulin Ratio 1.9 (1-3); Alkaline Phosphatase 36 U/L (35-149); Blood Urea Nitrogen 10 mg/dL (6-24); C Reactive Protein 12.54 mg/L (<8.01); CO2 Carbon Dioxide 29 mmol/L (22-32); Calcium 8.9 mg/dL (8.6-10.3); Chloride 101 mmol/L (101-111); Creatinine, Serum 0.97 mg/dL (0.51-0.95); Globulin 1.9 g/dL (2-4); Glucose 98 mg/dL (70-100); Sodium 138 mmol/L (135-145); Total Protein 5.5 g/dL (6.4-8.9); eGFR CKD-EPI 58.7 (>60)
[2023-03-30 18:33] LABS: Anion Gap 8 mmol/L (2-16)
[2023-03-30 18:42] LABS: Microcytosis 3+
[2023-03-30 18:43] LABS: Hypochromasia 2+; Polychromasia 2+
[2023-03-30 18:45] LABS: Anisocytosis 3+
[2023-03-30 18:46] LABS: ABS Eosinophils 0.1 10^3/uL (0.0-0.5); ABS Lymphocytes 0.7 10^3/uL (1.0-4.8); ABS Monocytes 0.6 10^3/uL (0.0-0.9); ABS Neutrophils 3.1 10^3/uL (1.5-7.6); ABS Nucleated RBC 0.03 10^3/ul; Eosinophil % 1.4 %; Lymphocyte % 15.4 %; Nucleated Red Blood Cells % 0.6 /100 WBC (0.0-0.4)
[2023-03-30] MEDS ORDERED: NS 0.9% 1000 ml BAG 1,000 ML IV SCH ×2 (21:00→21:07)
[2023-03-30] MEDS: Pantoprazole VIAL 40 MG VIAL IV SCH (23:13)
[2023-03-30 23:38] LABS: Potassium Redraw 2.8 mmol/L (3.5-5.0)
[2023-03-31 00:10] LABS: Folate > 20.00 ng/mL (5.90-24.80)
[2023-03-31 00:11] LABS: Vitamin B12 691 pg/mL (180-914)
[2023-03-31] MEDS ORDERED: Potassium Chloride LIQUID 20 MEQ/15 ML LIQUID PO ONE ×2 (00:32→03:20)
[2023-03-31] MEDS: KCL 20 MEQ/100 ML IVPREMIX 20 MEQ/100 ML BAG IV SCH ×2 (01:48→03:19)
[2023-03-31 03:31] LABS: Hemoglobin 7.1 g/dL (11.5-14.3)
[2023-03-31 05:53] LABS: Hematocrit 21.9 % (35-45); Hemoglobin 7.1 g/dL (11.5-14.3); Mean Corpuscular Hemoglobin 32.1 pg (27-33); Mean Corpuscular Hgb Conc 32.4 g/dL (31-36); Mean Corpuscular Volume 99.1 fL (80-97); Mean Platelet Volume 8.2 fL (7.5-11.2); Platelet Count 144 10^3/uL (150-450); Red Blood Count 2.21 10^6/uL (3.63-4.92); Red Cell Distribution Width 24.6 % (12-17); White Blood Count 2.6 10^3/uL (3.8-11.8)
[2023-03-31 05:54] LABS: ABS Basophils 0.1 10^3/uL (0.0-0.1); ABS Eosinophils 0.1 10^3/uL (0.0-0.5); ABS Lymphocytes 0.4 10^3/uL (1.0-4.8); ABS Monocytes 0.3 10^3/uL (0.0-0.9); ABS Neutrophils 1.8 10^3/uL (1.5-7.6); ABS Nucleated RBC 0.02 10^3/ul; Eosinophil % 2.2 %; Lymphocyte % 16.3 %; Nucleated Red Blood Cells % 0.6 /100 WBC (0.0-0.4)
[2023-03-31 06:12] LABS: Albumin 3.3 g/dL (3.2-5.2); Albumin/Globulin Ratio 1.8 (1-3); Calcium 8.7 mg/dL (8.6-10.3); Creatinine, Serum 0.87 mg/dL (0.51-0.95); Globulin 1.8 g/dL (2-4); Total Bilirubin 1.9 mg/dL (0.2-1.0); Total Protein 5.1 g/dL (6.4-8.9); eGFR CKD-EPI 66.9 (>60)
[2023-03-31] MEDS ORDERED: Furosemide 40 mg/4 ml IV VIAL IV SLOW PU ONE (08:12)
[2023-03-31] MEDS: Pantoprazole VIAL 40 MG VIAL IV SCH ×2 (09:08→23:02)
[2023-03-31 19:16] LABS: Urine Appearance Cloudy; Urine Bilirubin Negative (Negative); Urine Blood 2+ (Negative); Urine Color Yellow; Urine Glucose Negative (Negative); Urine Ketones Negative (Negative); Urine Nitrite Negative (Negative); Urine Protein Negative (Negative); Urine Specific Gravity 1.009 (1.002-1.030); Urine Urobilinogen Negative (Negative)
[2023-03-31 19:21] LABS: Urine Bacteria Absent (Absent); Urine Red Blood Cell Trace(0-2/hpf) (Absent); Urine Squamous Epithelial Cell Present (Absent); Urine White Blood Cell 2+(11-20/hpf) (Absent)
[2023-04-01] MEDS ORDERED: Potassium Chlor 20 meq TAB.ER PO ONE ×2 (07:43→17:05)
[2023-04-01] MEDS ORDERED: KCL 20 MEQ/100 ML IVPREMIX 20 MEQ/100 ML BAG IV ONE (07:46)
[2023-04-01] MEDS: Pantoprazole VIAL 40 MG VIAL IV SCH ×2 (09:28→21:00)
[2023-04-01] MEDS ORDERED: Polyethylene Glycol 3350 17 GM PACKET PO PRN (14:20)
[2023-04-01 16:05] LABS: Hematocrit 25.9 % (35-45); Hemoglobin 8.2 g/dL (11.5-14.3); Mean Corpuscular Hemoglobin 31.2 pg (27-33); Mean Corpuscular Hgb Conc 31.7 g/dL (31-36); Mean Corpuscular Volume 98.5 fL (80-97); Mean Platelet Volume 7.9 fL (7.5-11.2); Platelet Count 208 10^3/uL (150-450); Red Blood Count 2.63 10^6/uL (3.63-4.92); Red Cell Distribution Width 23.5 % (12-17); White Blood Count 5.1 10^3/uL (3.8-11.8)
[2023-04-01 16:23] LABS: Calcium 9.7 mg/dL (8.6-10.3); Creatinine, Serum 1.02 mg/dL (0.51-0.95); Potassium 3.4 mmol/L (3.5-5.0); eGFR CKD-EPI 55.3 (>60)
[2023-04-02 08:41] LABS: Hematocrit 23.7 % (35-45); Hemoglobin 7.7 g/dL (11.5-14.3); Mean Corpuscular Hemoglobin 31.9 pg (27-33); Mean Corpuscular Hgb Conc 32.7 g/dL (31-36); Mean Corpuscular Volume 97.7 fL (80-97); Mean Platelet Volume 8.2 fL (7.5-11.2); Platelet Count 196 10^3/uL (150-450); Red Blood Count 2.43 10^6/uL (3.63-4.92); Red Cell Distribution Width 23.3 % (12-17); White Blood Count 3.5 10^3/uL (3.8-11.8)
[2023-04-02 08:42] LABS: ABS Eosinophils 0.1 10^3/uL (0.0-0.5); ABS Lymphocytes 0.5 10^3/uL (1.0-4.8); ABS Monocytes 0.4 10^3/uL (0.0-0.9); ABS Neutrophils 2.4 10^3/uL (1.5-7.6); ABS Nucleated RBC 0.01 10^3/ul; Nucleated Red Blood Cells % 0.2 /100 WBC (0.0-0.4)
[2023-04-02 08:51] LABS: Calcium 9.1 mg/dL (8.6-10.3); Creatinine, Serum 0.86 mg/dL (0.51-0.95); Potassium 3.2 mmol/L (3.5-5.0); eGFR CKD-EPI 67.8 (>60)
[2023-04-02] MEDS ORDERED: Potassium Chlor 20 meq TAB.ER PO ONE (09:22)
[2023-04-02 09:50] LABS: Acanthocytes 1+; Anisocytosis 3+
[2023-04-02 09:51] LABS: Schistocytes 2+
[2023-04-02] MEDS: Pantoprazole VIAL 40 MG VIAL IV SCH (11:05)
[2023-04-02] MEDS ORDERED: Mineral Oil ENEMA 118 ML/BOTTLE BOTTLE PR ONE (11:18)
[2023-04-03 08:47] LABS: Hematocrit 28.8 % (35-45); Hemoglobin 8.9 g/dL (11.5-14.3); Mean Corpuscular Hemoglobin 31.1 pg (27-33); Mean Corpuscular Volume 100.3 fL (80-97); Mean Platelet Volume 7.5 fL (7.5-11.2); Platelet Count 255 10^3/uL (150-450); Red Blood Count 2.87 10^6/uL (3.63-4.92); Red Cell Distribution Width 24.5 % (12-17); White Blood Count 3.7 10^3/uL (3.8-11.8)
[2023-04-03 09:06] LABS: Calcium 9.6 mg/dL (8.6-10.3); Creatinine, Serum 0.87 mg/dL (0.51-0.95); Magnesium 1.7 mg/dL (1.9-2.7); Potassium 3.6 mmol/L (3.5-5.0); eGFR CKD-EPI 66.9 (>60)
[2023-04-03 10:33] VITALS: BP 94/61
== END 2023-04-03 13:05 | disposition home or self-care (01) | DRG 811 ==
LOC: EDHOLD 17:08 → ED 17:08 → SUATTDRO 20:31 → EDHOLD 03-31 20:07 → MEDTELE 03-31 22:00
PROVIDERS: ADMIT Hospitalist; ATTEND Internal Medicine

== ENCOUNTER 2023-06-17 13:40 | Inpatient (IN) ==
[2023-06-17] MEDS ORDERED: Morphine 4 MG/ML VIAL (1 ml) IV ONE ×2 (15:08→16:39)
[2023-06-17] MEDS ORDERED: Ondansetron 4 mg VIAL 2 MG/ML 2 ml VIAL IV ONE (15:08)
[2023-06-17] MEDS ORDERED: NS 0.9% 1000 ml BAG 1,000 ML IV ONE (15:26)
[2023-06-17 15:45] LABS: Hematocrit 32.1 % (35-45); Mean Corpuscular Hemoglobin 33.5 pg (27-33); Mean Corpuscular Hgb Conc 34.2 g/dL (31-36); Mean Corpuscular Volume 97.9 fL (80-97); Mean Platelet Volume 7.5 fL (7.5-11.2); Platelet Count 273 10^3/uL (150-450); Red Blood Count 3.28 10^6/uL (3.63-4.92); Red Cell Distribution Width 17.5 % (12-17); White Blood Count 7.4 10^3/uL (3.8-11.8)
[2023-06-17 15:50] LABS: Albumin 4.4 g/dL (3.2-5.2); Calcium 9.9 mg/dL (8.6-10.3); Magnesium 1.8 mg/dL (1.9-2.7); Total Bilirubin 2.9 mg/dL (0.2-1.0)
[2023-06-17 15:56] LABS: Albumin/Globulin Ratio 1.6 (1-3); Creatinine, Serum 0.95 mg/dL (0.51-0.95); Globulin 2.7 g/dL (2-4); Total Protein 7.1 g/dL (6.4-8.9); eGFR CKD-EPI 60.2 (>60)
[2023-06-17 16:03] LABS: Potassium 4.2 mmol/L (3.5-5.0)
[2023-06-17 17:12] LABS: TSH Ultra Thyroid Stim Horm 3.52 mcIU/mL (0.34-5.60)
[2023-06-17 17:15] LABS: Urine Appearance Cloudy; Urine Bilirubin Negative (Negative); Urine Blood 3+ (Negative); Urine Color Yellow; Urine Glucose Negative (Negative); Urine Ketones Negative (Negative); Urine Nitrite Negative (Negative); Urine Protein 1+(30 mg/dL) (Negative); Urine Specific Gravity 1.005 (1.002-1.030); Urine Urobilinogen Negative (Negative)
[2023-06-17 17:27] LABS: Urine Bacteria Absent (Absent); Urine Red Blood Cell 1+(3-5/hpf) (Absent); Urine Squamous Epithelial Cell Present (Absent); Urine White Blood Cell Trace(0-5/hpf) (Absent)
[2023-06-17 17:38] LABS: High Sensitivity Troponin 1 Hr 8 pg/mL (<15)
[2023-06-17 17:49] LABS: ABS Basophils 0.1 10^3/uL (0.0-0.1); ABS Eosinophils 0.1 10^3/uL (0.0-0.5); ABS Lymphocytes 0.5 10^3/uL (1.0-4.8); ABS Monocytes 0.9 10^3/uL (0.0-0.9); ABS Neutrophils 5.9 10^3/uL (1.5-7.6); ABS Nucleated RBC 0.01 10^3/ul; Eosinophil % 1.2 %; Lymphocyte % 6.6 %; Nucleated Red Blood Cells % 0.1 /100 WBC (0.0-0.4)
[2023-06-17 17:52] LABS: Anisocytosis 2+; Schistocytes 2+
[2023-06-17 17:53] LABS: Acanthocytes 1+; Polychromasia 1+
[2023-06-17] MEDS ORDERED: diazePAM INJ CARPUJECT 5 MG/ML SYRINGE IV PRN (22:54)
[2023-06-18] MEDS: Pantoprazole VIAL 40 MG VIAL IV SCH ×2 (09:30→20:37)
[2023-06-18] MEDS: Aspirin EC 81 mg TAB.EC (enteric coated) PO SCH (09:30)
[2023-06-18] MEDS ORDERED: Furosemide 40 mg/4 ml IV VIAL IV ONE (11:56)
[2023-06-19 05:55] LABS: Hemoglobin 10.5 g/dL (11.5-14.3); Mean Corpuscular Hemoglobin 34.1 pg (27-33); Mean Corpuscular Hgb Conc 35.1 g/dL (31-36); Mean Corpuscular Volume 97.3 fL (80-97); Mean Platelet Volume 7.5 fL (7.5-11.2); Platelet Count 232 10^3/uL (150-450); Red Blood Count 3.08 10^6/uL (3.63-4.92); Red Cell Distribution Width 17.3 % (12-17); White Blood Count 5.9 10^3/uL (3.8-11.8)
[2023-06-19 06:12] LABS: Albumin/Globulin Ratio 1.5 (1-3); Calcium 9.8 mg/dL (8.6-10.3); Creatinine, Serum 0.93 mg/dL (0.51-0.95); Globulin 2.6 g/dL (2-4); Potassium 3.8 mmol/L (3.5-5.0); Total Bilirubin 2.5 mg/dL (0.2-1.0); Total Protein 6.6 g/dL (6.4-8.9); eGFR CKD-EPI 61.7 (>60)
[2023-06-19 07:08] LABS: ABS Eosinophils 0.1 10^3/uL (0.0-0.5); ABS Lymphocytes 0.3 10^3/uL (1.0-4.8); ABS Monocytes 0.7 10^3/uL (0.0-0.9); ABS Neutrophils 4.7 10^3/uL (1.5-7.6); ABS Nucleated RBC 0.01 10^3/ul; Anisocytosis 1+; Eosinophil % 1.7 %; Lymphocyte % 5.7 %; Nucleated Red Blood Cells % 0.1 /100 WBC (0.0-0.4); Polychromasia 1+; Schistocytes 1+
[2023-06-19] MEDS: Pantoprazole VIAL 40 MG VIAL IV SCH (07:48)
[2023-06-19] MEDS: Aspirin EC 81 mg TAB.EC (enteric coated) PO SCH (07:49)
[2023-06-19] MEDS ORDERED: Senna TAB 8.6 mg TAB PO PRN (10:06)
[2023-06-19] MEDS: Enoxaparin 40 MG/0.4 ML SYR SUBCUT SCH (11:00)
[2023-06-19 11:35] LABS: Direct Bilirubin 0.4 mg/dL (0.03-0.18); Magnesium 1.7 mg/dL (1.9-2.7)
[2023-06-19] MEDS ORDERED: Magnesium Sulfate 2 gm BAG 2 GM/50 ML BAG IVPB ONE (15:27)
[2023-06-20] MEDS: Enoxaparin 40 MG/0.4 ML SYR SUBCUT SCH (09:04)
[2023-06-20] MEDS: Aspirin EC 81 mg TAB.EC (enteric coated) PO SCH (09:05)
[2023-06-20 10:12] LABS: Hematocrit 30.8 % (35-45); Hemoglobin 10.7 g/dL (11.5-14.3); Mean Corpuscular Hemoglobin 33.5 pg (27-33); Mean Corpuscular Hgb Conc 34.6 g/dL (31-36); Mean Corpuscular Volume 96.7 fL (80-97); Mean Platelet Volume 7.5 fL (7.5-11.2); Platelet Count 299 10^3/uL (150-450); Red Blood Count 3.18 10^6/uL (3.63-4.92); Red Cell Distribution Width 17.3 % (12-17)
[2023-06-20] MEDS: Polyethylene Glycol 3350 17 GM PACKET PO SCH (10:20)
[2023-06-20] MEDS: NS 0.9% 1000 ml BAG 1,000 ML IV SCH ×2 (10:21→23:16)
[2023-06-20 10:32] LABS: Calcium 9.7 mg/dL (8.6-10.3); Creatinine, Serum 0.77 mg/dL (0.51-0.95); Magnesium 1.9 mg/dL (1.9-2.7); Potassium 3.7 mmol/L (3.5-5.0); eGFR CKD-EPI 77.4 (>60)
[2023-06-20 11:07] LABS: ABS Basophils 0.1 10^3/uL (0.0-0.1); ABS Eosinophils 0.1 10^3/uL (0.0-0.5); ABS Lymphocytes 0.3 10^3/uL (1.0-4.8); ABS Monocytes 0.8 10^3/uL (0.0-0.9); ABS Neutrophils 5.7 10^3/uL (1.5-7.6); ABS Nucleated RBC 0.01 10^3/ul; Eosinophil % 1.4 %; Lymphocyte % 4.8 %; Nucleated Red Blood Cells % 0.1 /100 WBC (0.0-0.4)
[2023-06-20 11:08] LABS: Polychromasia 1+; Schistocytes 1+
[2023-06-21] MEDS: Aspirin EC 81 mg TAB.EC (enteric coated) PO SCH (08:36)
[2023-06-21] MEDS: Polyethylene Glycol 3350 17 GM PACKET PO SCH (08:44)
[2023-06-21] MEDS: Enoxaparin 40 MG/0.4 ML SYR SUBCUT SCH (10:50)
[2023-06-21] MEDS: NS 0.9% 1000 ml BAG 1,000 ML IV SCH (13:17)
[2023-06-21 13:49] VITALS: BP 111/59
== END 2023-06-21 15:38 | disposition home or self-care (01) | DRG 947 ==
LOC: EDHOLD 13:40 → ED 13:40 → SUATTDRO 18:14 → MEDTELE 06-18 14:51 → SUATTDRO 06-19 14:10
PROVIDERS: ADMIT Internal Medicine; ATTEND Hospitalist

== ENCOUNTER 2023-12-02 08:43 | Inpatient (IN) ==
[2023-12-02 09:22] LABS: Hematocrit 32.6 % (35-45); Hemoglobin 10.9 g/dL (11.5-14.3); Mean Corpuscular Hemoglobin 30.5 pg (27-33); Mean Corpuscular Hgb Conc 33.3 g/dL (31-36); Mean Corpuscular Volume 91.4 fL (80-97); Mean Platelet Volume 7.3 fL (7.5-11.2); Platelet Count 227 10^3/uL (150-450); Red Blood Count 3.56 10^6/uL (3.63-4.92); Red Cell Distribution Width 20.4 % (12-17); White Blood Count 4.8 10^3/uL (3.8-11.8)
[2023-12-02 09:28] LABS: INR 1.41 (0.83-1.13)
[2023-12-02 09:51] LABS: Urine Appearance Clear; Urine Bilirubin Negative (Negative); Urine Blood 1+ (Negative); Urine Color Yellow; Urine Glucose Negative (Negative); Urine Ketones Negative (Negative); Urine Nitrite Negative (Negative); Urine Protein Negative (Negative); Urine Specific Gravity 1.008 (1.002-1.030); Urine Urobilinogen Negative (Negative)
[2023-12-02 10:15] LABS: Albumin 3.9 g/dL (3.2-5.2); Albumin/Globulin Ratio 1.9 (1-3); Calcium 9.3 mg/dL (8.6-10.3); Creatinine, Serum 0.94 mg/dL (0.51-0.95); Globulin 2.1 g/dL (2-4); Potassium 4.6 mmol/L (3.5-5.0); Total Bilirubin 2.8 mg/dL (0.2-1.0)
[2023-12-02 10:34] LABS: ABS Eosinophils 0.1 10^3/uL (0.0-0.5); ABS Lymphocytes 0.4 10^3/uL (1.0-4.8); ABS Monocytes 0.7 10^3/uL (0.0-0.9); ABS Neutrophils 3.5 10^3/uL (1.5-7.6); ABS Nucleated RBC 0.05 10^3/ul; Eosinophil % 1.1 %; Lymphocyte % 9.2 %
[2023-12-02 10:41] LABS: High Sensitivity Troponin 1 Hr 12 pg/mL (<15)
[2023-12-02 11:20] LABS: Urine Bacteria Absent /HPF (Absent); Urine Red Blood Cell Trace(0-2/hpf) /HPF (0-Trace); Urine Squamous Epithelial Cell Present /HPF (Absent); Urine White Blood Cell Trace(0-5/hpf) /HPF (0-Trace)
[2023-12-02] MEDS: Iodixanol (CONTRAST) 320 MG/ML 100 ML SDV IV ONE (14:54)
[2023-12-02] MEDS: Albuterol HFA INHALER 8 gm MDI INH ONE (15:16)
[2023-12-02] MEDS: Furosemide 40 mg/4 ml IV VIAL IV SLOW PU ONE (18:04)
[2023-12-02 18:21] LABS: Magnesium 1.9 mg/dL (1.9-2.7)
[2023-12-02] MEDS: Enoxaparin 40 MG/0.4 ML SYR SUBCUT SCH (20:34)
[2023-12-02] MEDS: Aspirin EC 81 mg TAB.EC (enteric coated) PO SCH (20:34)
[2023-12-03 05:43] LABS: Hematocrit 29.6 % (35-45); Hemoglobin 9.9 g/dL (11.5-14.3); Mean Corpuscular Hemoglobin 30.2 pg (27-33); Mean Corpuscular Hgb Conc 33.3 g/dL (31-36); Mean Corpuscular Volume 90.6 fL (80-97); Platelet Count 193 10^3/uL (150-450); Red Blood Count 3.27 10^6/uL (3.63-4.92); Red Cell Distribution Width 20.1 % (12-17)
[2023-12-03 05:59] LABS: Calcium 8.7 mg/dL (8.6-10.3); Creatinine, Serum 1.03 mg/dL (0.51-0.95); Potassium 3.5 mmol/L (3.5-5.0); eGFR CKD-EPI 54.6 (>60)
[2023-12-03 07:30] LABS: ABS Basophils 0.1 10^3/uL (0.0-0.1); ABS Eosinophils 0.1 10^3/uL (0.0-0.5); ABS Lymphocytes 0.5 10^3/uL (1.0-4.8); ABS Monocytes 0.7 10^3/uL (0.0-0.9); ABS Neutrophils 2.5 10^3/uL (1.5-7.6); Anisocytosis 2+; Eosinophil % 2.5 %; Lymphocyte % 13.3 %; Nucleated Red Blood Cells % 0.1 %/100WBC (0.0-0.8); Polychromasia 2+; Schistocytes 2+
[2023-12-03] MEDS: Potassium Chlor 10 meq TAB PO SCH (08:42)
[2023-12-04 08:22] LABS: Albumin 3.6 g/dL (3.2-5.2); Albumin/Globulin Ratio 1.8 (1-3); Creatinine, Serum 0.86 mg/dL (0.51-0.95); Potassium 3.9 mmol/L (3.5-5.0); Total Bilirubin 2.7 mg/dL (0.2-1.0); Total Protein 5.6 g/dL (6.4-8.9); eGFR CKD-EPI 67.8 (>60)
[2023-12-06] MEDS ORDERED: Flumazenil 0.5 mg/5 ml 0.1 MG/ML 5 ml VIAL ONE (07:59)
[2023-12-06] MEDS ORDERED: Midazolam 5 mg/5 ml VIAL 1 mg/ml 5 ml VIAL (5 mg) ONE (07:59)
[2023-12-06] MEDS ORDERED: Naloxone 0.4 mg VIAL 0.4 mg/ml 1 ml VIAL ONE (07:59)
[2023-12-06] MEDS ORDERED: fentaNYL 100 mcg/2 ml 50 MCG/ML VIAL ONE (07:59)
[2023-12-06] MEDS: Midazolam 10 mg/10 ml VIAL 1 mg/ml 10 ml VIAL (10 mg) IV SLOW PU ONE (09:02)
[2023-12-06] MEDS: fentaNYL 100 mcg/2 ml 50 MCG/ML VIAL IV SLOW PU ONE (09:02)
[2023-12-06] MEDS: Polyethylene Glycol 3350 17 GM PACKET PO SCH (11:26)
[2023-12-07 06:04] LABS: Hematocrit 30.1 % (35-45); Hemoglobin 9.8 g/dL (11.5-14.3); Mean Corpuscular Hemoglobin 29.7 pg (27-33); Mean Corpuscular Hgb Conc 32.6 g/dL (31-36); Mean Corpuscular Volume 91.3 fL (80-97); Mean Platelet Volume 8.5 fL (7.5-11.2); Platelet Count 167 10^3/uL (150-450); Red Blood Count 3.29 10^6/uL (3.63-4.92); Red Cell Distribution Width 19.4 % (12-17); White Blood Count 12.9 10^3/uL (3.8-11.8)
[2023-12-07 06:06] LABS: Albumin 3.7 g/dL (3.2-5.2); Albumin/Globulin Ratio 1.9 (1-3); Calcium 9.1 mg/dL (8.6-10.3); Creatinine, Serum 0.81 mg/dL (0.51-0.95); Magnesium 1.4 mg/dL (1.9-2.7); Potassium 3.9 mmol/L (3.5-5.0); Total Bilirubin 3.2 mg/dL (0.2-1.0); Total Protein 5.7 g/dL (6.4-8.9); eGFR CKD-EPI 72.9 (>60)
[2023-12-07] MEDS: Iodixanol (CONTRAST) 320 MG/ML 100 ML SDV IV ONE (06:12)
[2023-12-07 06:24] LABS: ABS Lymphocytes 0.2 10^3/uL (1.0-4.8); ABS Monocytes 1.5 10^3/uL (0.0-0.9); ABS Neutrophils 11.1 10^3/uL (1.5-7.6); Eosinophil % 0.1 %; Lymphocyte % 1.5 %
[2023-12-07 06:57] LABS: High Sensitivity Troponin 1 Hr 12 pg/mL (<15)
[2023-12-07] MEDS ORDERED: Calcium Carb (TUMS) 500 mg CHEW TAB PO PRN (08:31)
[2023-12-07] MEDS: Magnesium Sulfate 2 gm BAG 2 GM/50 ML BAG IVPB ONE ×2 (09:03→23:45)
[2023-12-07] MEDS: Furosemide 20 mg/2 ml IV VIAL IV SLOW PU ONE ×2 (09:08→17:01)
[2023-12-07] MEDS: Morphine 2 MG/ML SYRINGE IV ONE (12:38)
[2023-12-07 16:27] LABS: Hematocrit 31.8 % (35-45); Hemoglobin 10.3 g/dL (11.5-14.3); Mean Corpuscular Hgb Conc 32.5 g/dL (31-36); Mean Corpuscular Volume 92.3 fL (80-97); Mean Platelet Volume 8.9 fL (7.5-11.2); Platelet Count 156 10^3/uL (150-450); White Blood Count 12.6 10^3/uL (3.8-11.8)
[2023-12-07 16:46] LABS: Calcium 9.1 mg/dL (8.6-10.3); Creatinine, Serum 0.96 mg/dL (0.51-0.95); Potassium 4.1 mmol/L (3.5-5.0); eGFR CKD-EPI 59.4 (>60)
[2023-12-07 17:53] LABS: ABS Lymphocytes 0.1 10^3/uL (1.0-4.8); ABS Monocytes 0.9 10^3/uL (0.0-0.9); ABS Neutrophils 11.6 10^3/uL (1.5-7.6); ABS Nucleated RBC 0.01 10^3/ul; Anisocytosis 1+; Eosinophil % 0.1 %; Nucleated Red Blood Cells % 0.1 %/100WBC (0.0-0.8); Red Blood Count 3.44 10^6/uL (3.63-4.92)
[2023-12-07] MEDS: cefTRIAXone 1 gm/50 mL D5W 1 GM/50 ML BAG IV SCH (18:00)
[2023-12-07] MEDS ORDERED: Vancomycin per Pharmacy 1 EA NOTE FOLLOW UP PRN (18:33)
[2023-12-07] MEDS: Vancomycin 1,250 MG IV x ONCE IVPB ONE (19:33)
[2023-12-07 20:19] LABS: Urine Appearance Clear; Urine Bilirubin Negative (Negative); Urine Blood 1+ (Negative); Urine Color Yellow; Urine Glucose Negative (Negative); Urine Ketones Negative (Negative); Urine Nitrite Negative (Negative); Urine Protein Negative (Negative); Urine Specific Gravity 1.023 (1.002-1.030); Urine Urobilinogen Negative (Negative); Urine pH 5.5 (5.0-8.0)
[2023-12-07] MEDS: Norepinephrine 16 MG/250mL NS 16,000 MCG/250 ML BAG IV SCH ×2 (21:30→23:45)
[2023-12-07] MEDS: Norepinephrine 4 MG/250mL D5W 4,000 MCG/250 ML BAG IV ONE (21:42)
[2023-12-07] MEDS: Furosemide 40 mg/4 ml IV VIAL IV SLOW PU ONE ×2 (21:43→23:44)
[2023-12-07] MEDS: Norepinephrine *QUAD STRENGTH* 16 mg/250 mL NS PREMIX (ICU ONLY) IV SCH (21:43)
[2023-12-07 21:53] LABS: Urine Bacteria Absent /HPF (Absent); Urine Red Blood Cell 1+(3-5/hpf) /HPF (0-Trace); Urine White Blood Cell Trace(0-5/hpf) /HPF (0-Trace)
[2023-12-07] MEDS: Lidocaine PATCH 5% PATCH TRANSDERM ONE (23:44)
[2023-12-08] MEDS: Phenylephrine IV 50 MG in NS 0.9% 250 ml 245 ML IV SCH ×3 (04:09→16:56)
[2023-12-08 06:20] LABS: Albumin 3.6 g/dL (3.2-5.2); Albumin/Globulin Ratio 1.6 (1-3); Calcium 8.6 mg/dL (8.6-10.3); Creatinine, Serum 1.04 mg/dL (0.51-0.95); Globulin 2.3 g/dL (2-4); Magnesium 2.3 mg/dL (1.9-2.7); Potassium 3.5 mmol/L (3.5-5.0); Total Bilirubin 2.9 mg/dL (0.2-1.0); Total Protein 5.9 g/dL (6.4-8.9)
[2023-12-08 06:29] LABS: Hematocrit 28.8 % (35-45); Hemoglobin 9.2 g/dL (11.5-14.3); Mean Corpuscular Hemoglobin 29.9 pg (27-33); Mean Corpuscular Volume 93.4 fL (80-97); Mean Platelet Volume 8.9 fL (7.5-11.2); Platelet Count 168 10^3/uL (150-450); Red Blood Count 3.08 10^6/uL (3.63-4.92); Red Cell Distribution Width 20.4 % (12-17); White Blood Count 19.8 10^3/uL (3.8-11.8)
[2023-12-08 07:15] LABS: ABS Lymphocytes 0.3 10^3/uL (1.0-4.8); ABS Monocytes 1.6 10^3/uL (0.0-0.9); ABS Neutrophils 17.9 10^3/uL (1.5-7.6); ABS Nucleated RBC 0.01 10^3/ul; Acanthocytes 1+; Anisocytosis 2+; Burr Cells 2+; Lymphocyte % 1.6 %; Polychromasia 1+; Schistocytes 2+
[2023-12-08] MEDS: Potassium Chlor 20 meq TAB.ER PO ONE (09:28)
[2023-12-08] MEDS: KCL 20 MEQ/100 ML IVPREMIX 20 MEQ/100 ML BAG IV SCH ×2 (09:38→10:29)
[2023-12-08] MEDS: Bismuth Subsalicylate (BTL) 525 MG/30 ML (BULK BTL) PO PRN (10:12)
[2023-12-08] MEDS: TENECTEPLASE 50 MG VIAL KIT 5 MG/ML (reconstituted) IV ONE ×2 (12:57→13:46)
[2023-12-08] MEDS ORDERED: Lorazepam PYXIS KEY PRN (14:18)
[2023-12-08] MEDS: LORazepam 2 mg VIAL 1 ml IV PUSH ONE (14:25)
[2023-12-08] MEDS: LORazepam 2 mg VIAL 1 ml ONE (14:26)
[2023-12-08] MEDS: Ondansetron 4 mg VIAL 2 MG/ML 2 ml VIAL IV PRN (17:08)
[2023-12-08] MEDS: Morphine 2 MG/ML SYRINGE IV PRN (17:48)
[2023-12-08] MEDS: Vancomycin 1,250 MG in NS 0.9% 250 ml 250 ML IVPB SCH (19:15)
[2023-12-09 00:40] VITALS: BP 69/42
[2023-12-10] MEDS ORDERED: Vancomycin Trough Check NOTE FOLLOW UP ONE (19:30)
== END 2023-12-09 00:03 | disposition expired | DRG 314 ==
LOC: ED 08:43 → EDHOLD 08:43 → INTOOBSV 17:50 → OBSVTOIN 17:50 → MEDTELE 21:33 → SUATTDRO 12-04 16:36 → MEDTELE 12-05 10:08 → ICU 12-07 20:46
PROVIDERS: ADMIT Hospitalist; ATTEND Internal Medicine Critical Care Medicine